=== PATIENT | female | born 1995 | race Two or more races ===

== ENCOUNTER 2017-12-31 16:08 | Inpatient (IN) | payer SELFPAY, MEDICAID ==
[2017-12-31] MEDS: IV RINGERS,LACTATED 1000ML 1,000 ML IV ×2 (17:46→20:59)
[2017-12-31] MEDS ORDERED: IV DEXTROSE 5%-LACT RINGERS 1,000 ML IV (18:15)
[2017-12-31] MEDS ORDERED: IV RINGERS,LACTATED 1000ML 1,000 ML IV (19:48)
[2017-12-31] MEDS ORDERED: MAG HYDROX/ALUMINUM HYD/SIMETH 30 ML ORAL.SUSP PO (20:00)
[2017-12-31] MEDS ORDERED: IBUPROFEN 800 MG TABLET. PO (20:00)
[2017-12-31] MEDS ORDERED: 0.9 % SODIUM CHLORIDE 10 ML DISP.SYRIN. IV (20:00)
[2017-12-31] MEDS ORDERED: ONDANSETRON PF 4 MG/2 ML VIAL. IV (20:00)
[2017-12-31] MEDS ORDERED: LIDOCAINE 1% PF 30 ML VIAL. INJ (20:00)
[2017-12-31] MEDS ORDERED: BUTORPHANOL 2 MG/ML VIAL. IV (20:00)
[2017-12-31] MEDS ORDERED: TERBUTALINE 1 MG/ML VIAL. SQ (20:00)
[2017-12-31] MEDS ORDERED: CITRIC ACID/SODIUM CITRATE 30 ML SOLUTION. PO (20:00)
[2017-12-31] MEDS ORDERED: ACETAMINOPHEN 325 MG TABLET. PO (20:00)
[2017-12-31] MEDS ORDERED: OXYTOCIN 30 UNIT/500 ML PREMIX 500 ML IV ×2 (20:00)
[2017-12-31] MEDS: DINOPROSTONE 10 MG SUPP.VAG VG (20:59)
[2017-12-31 21:06] LABS: ADD MAN DIFF? NO
[2017-12-31 21:08] LABS: BASO % 0 % (0-3); EOS # 0.1 x10^3/uL (0.0-0.7); EOS % 1 % (0-3); HEMATOCRIT 38.4 % (36.0-47.0); HEMOGLOBIN 13.3 g/dL (12.0-15.5); LYMPH # 2.8 x10^3/uL (1.0-4.8); LYMPH % 29 % (24-48); MEAN CORPUSCULAR HEMOGLOBIN 30 pg (25-35); MEAN CORPUSCULAR HGB CONC 35 g/dL (31-37); MEAN CORPUSCULAR VOLUME 87 fL (79-100); MONO % 11 % (0-9); NEUT # 5.6 x10^3uL (1.8-7.7); NEUT % 59 % (31-73); PLATELET COUNT 241 x10^3/uL (140-400); RED BLOOD COUNT 4.41 x10^6/uL (3.50-5.40); RED CELL DISTRIBUTION WIDTH 13.3 % (11.5-14.5); WHITE BLOOD COUNT 9.6 x10^3/uL (4.0-11.0)
[2018-01-01] MEDS: AMPICILLIN SODIUM 2 GM in IV NORMAL SALINE 100ML 100 ML IV (03:59)
[2018-01-01] MEDS: IV RINGERS,LACTATED 1000ML 1,000 ML IV (04:00)
[2018-01-01] MEDS: AMPICILLIN SODIUM 1 GM in IV NORMAL SALINE 50ML 50 ML IV (07:44)
[2018-01-01] MEDS: fentaNYL PF VIAL 100 MCG/2 ML VIAL IV (09:14)
[2018-01-01] MEDS ORDERED: OXYTOCIN PREMIX 30 UNIT/500 ML BAG. IV (09:41)
[2018-01-01] MEDS ORDERED: ACETAMINOPHEN 325 MG TABLET. PO (10:15)
[2018-01-01] MEDS ORDERED: PHENYLEPH/MINERAL OIL/PETROLAT RECTAL OINTMENT 28GM TUBE. RC (10:15)
[2018-01-01] MEDS ORDERED: diphenhydrAMINE HCL 25 MG CAPSULE PO (10:15)
[2018-01-01] MEDS ORDERED: SIMETHICONE 80 MG TAB.CHEW PO (10:15)
[2018-01-01] MEDS ORDERED: ZOLPIDEM 5 MG TABLET. PO (10:15)
[2018-01-01] MEDS ORDERED: 0.9 % SODIUM CHLORIDE 10 ML DISP.SYRIN. IV (10:15)
[2018-01-01] MEDS ORDERED: OXYTOCIN 30 UNIT/500 ML PREMIX 500 ML IV (10:15)
[2018-01-01] MEDS ORDERED: MAG HYDROX/ALUMINUM HYD/SIMETH 30 ML ORAL.SUSP PO (10:15)
[2018-01-01] MEDS ORDERED: HYDROCORTISONE 1% TOPICAL OINTMENT 30GM TUBE. TP (10:15)
[2018-01-01] MEDS ORDERED: MAGNESIUM HYDROXIDE 2,400 MG/30 ML ORAL.SUSP. PO (10:15)
[2018-01-01] MEDS ORDERED: BENZOCAINE 20% TOPICAL AEROSOL SPRAY 57GM CAN. TP (10:15)
[2018-01-01] MEDS: IBUPROFEN 800 MG TABLET. PO ×2 (11:56→21:48)
[2018-01-01] MEDS ORDERED: FERROUS SULFATE 325 MG TABLET. PO (17:00)
[2018-01-02] MEDS: IBUPROFEN 800 MG TABLET. PO (08:43)
== END 2018-01-02 14:30 | disposition home or self-care (01) | DRG 775 ==
LOC: 3 SO LND 16:08 → 3 NORTH 01-01 11:59
PROVIDERS: Specialist
PROC: 10E0XZZ Delivery of Products of Conception, External Approach (ICD-10-PCS; principal; 2018-01-01)
DX: O36.5930 Maternal care for other known or suspected poor fetal growth, third trimester, not applicable or unspecified (principal); Z37.0 Single live birth; Z3A.38 38 weeks gestation of pregnancy; O77.0 Labor and delivery complicated by meconium in amniotic fluid
CPT/HCPCS: 36415; 76819; 85014; 85025; 86592; 86850; 86900; 86901; 88307; G0378; J0290; J2590; J3010; J7120